=== PATIENT | female | born 1990 | race Caucasian/White ===

== ENCOUNTER 2018-04-27 10:10 | Day surgery (SDC) | payer OTHER ==
[~2018-04-27 10:10] MED LIST: ACYC200C PO; HYDROmorphone 2 MG/ML VIAL IV PRN; IV RINGERS,LACTATED 1000ML 1,000 ML IV SCH; LEXAPRO5 MG PO; LIDOCAINE 1% PF 2 ML VIAL. ID PRN; ONDANSETRON PF 4 MG/2 ML VIAL. IV PRN; PROCHLORPERAZINE 10 MG/2 ML VIAL. IV PRN; fentaNYL PF VIAL 100 MCG/2 ML VIAL IV PRN
[2018-04-27 10:53] LABS: U PREG PATIENT NEGATIVE (NEG)
[2018-04-27] MEDS ORDERED: BUPIVAC MPF-EPI 0.5%-1:200000 30 ML VIAL. ONE (11:56)
[2018-04-27] MEDS ORDERED: fentaNYL PF VIAL 100 MCG/2 ML VIAL ONE ×3 (12:01→13:14)
[2018-04-27] MEDS ORDERED: MIDAZOLAM HCL/PF 2 MG/2 ML VIAL. ONE (12:01)
[2018-04-27] MEDS ORDERED: ROCURONIUM 50 MG/5 ML VIAL. ONE (12:01)
[2018-04-27] MEDS ORDERED: GLYCOPYRROLATE 1 MG/5 ML VIAL. ONE (12:38)
[2018-04-27] MEDS ORDERED: ONDANSETRON PF 4 MG/2 ML VIAL. ONE (12:38)
[2018-04-27] MEDS ORDERED: LIDOCAINE 2% PF Vial for OR 5 ML VIAL. ONE (12:38)
[2018-04-27] MEDS ORDERED: PROPOFOL 20 ML IV ONE (12:38)
[2018-04-27] MEDS ORDERED: DEXAMETHASONE SOD PHOS 20 MG/5 ML VIAL. ONE (12:38)
[2018-04-27] MEDS ORDERED: SEVOFLURANE 31 TO 60 MINUTES. IH ONE (12:38)
[2018-04-27] MEDS ORDERED: NEOSTIGMINE 10 MG/10 ML VIAL. ONE (12:39)
[2018-04-27] MEDS ORDERED: PROCHLORPERAZINE 10 MG/2 ML VIAL. ONE (12:47)
--- NOTE | 2018-04-27 12:52 | PDOC ---
BRIEF OPERATIVE NOTE Date: Apr 27, 2018 Pre-Op Diagnosis Sterilization Post-Op Diagnosis SAme Procedure Performed [facility] BTL Surgeon Dr. Priest Anesthesia Type: General Blood Loss less than 5 ml Specimens Obtained none Findings nml size uterus, nml fallopian tubes and ovaries jazlyn. Complications none PATRICK PRIEST Jr, MD Apr 27, 2018 12:52
--- NOTE | 2018-04-27 12:53 | DISCH ---
DISCHARGE INSTRUCTIONS Condition on Discharge Condition on Discharge: Stable Activity After Discharge Activity Instructions for Disc: Activity as tolerated Lifting Instructions after Dis: No heavy lifting Driving Instructions after Dis: Do not drive today Diet after Discharge Diet after Discharge: Regular Contacting the DRChris after DC Call your doctor for: Concerns you may have Follow-Up Follow up with: Dr. Priets in 1 week. PATRICK PRIEST Jr, MD Apr 27, 2018 12:53
--- NOTE | 2018-04-27 13:06 | OP ---
DATE OF SURGERY: 04/27/2018 PREOPERATIVE DIAGNOSIS: Sterilization. POSTOPERATIVE DIAGNOSIS: Sterilization. PROCEDURE: Laparoscopic BTL. SURGEON: Blake Priest MD ANESTHESIA: GETA. ESTIMATED BLOOD LOSS: Less than 5 mL. COMPLICATIONS: None. FINDINGS: Normal size uterus, normal fallopian tubes and ovaries bilaterally. SUMMARY: A 28-year-old female desiring permanent sterilization, was counseled on risks, benefits and expectations as well as the failure rate of bilateral tubal ligation and voiced clear understanding to proceed. DESCRIPTION OF PROCEDURE: The patient was taken to surgery suite and placed in dorsal lithotomy position. She was prepped with ChloraPrep and draped in sterile fashion. She also prepped with Betadine solution for vaginal prep. After adequate anesthesia, a bivalve speculum was placed vaginally. Anterior lip of the cervix grasped with single tooth tenaculum. Isola uterine manipulator was then placed. The bivalve speculum was removed. Attention was now placed on abdomen. Small transverse skin incision was made just below the umbilicus with the scalpel. The Veress needle was then placed through the infraumbilical incision site. The abdomen was allowed to insufflate up to 1-1/2 liters CO2 gas. The Veress needle was then removed, 5 mm trocar was placed. Scope was positioned. Uterus, fallopian tubes, and ovaries appeared normal bilaterally. Left lower quadrant incision was made with a scalpel in which 8-mm port was placed. The Filshie clip applicator was then passed through this port and a Filshie clip was applied to the left fallopian tube in the isthmus region with total occlusion of the fallopian tube. Same process took place with the right adnexa. The patient tolerated procedure well. Both trocars were removed under direct visualization. The abdomen was allowed to deflate as much as possible along with mechanical manipulation. The two skin incisions were reapproximated using 4-0 Vicryl suture in subcuticular manner. A 0.5% Marcaine with epinephrine was injected at each incision site. Single tooth tenaculum and uterine Isola manipulator was then removed. The patient tolerated the procedure well and was taken to recovery room in stable condition. Sponge and needle count correct x 3. BLAKE PRIEST MD DR: [email or web address]/gaby JOB#: [id number] / [id number]
[2018-04-27] MEDS: fentaNYL PF VIAL 100 MCG/2 ML VIAL IV PRN ×4 (13:13→13:34)
[2018-04-27] MEDS ORDERED: HYDROcodone/APAP 5/325MG 1 TAB TABLET PO ONE ×2 (13:30)
[2018-04-27] MEDS ORDERED: MORPHINE SULFATE 2 MG/ML VIAL. ONE (13:52)
[2018-04-27] MEDS: MORPHINE SULFATE 2 MG/ML VIAL. IV PRN ×2 (13:55→14:16)
[2018-04-27] MEDS ORDERED: KETOROLAC 30 MG/ML VIAL. ONE (14:25)
[2018-04-27] MEDS ORDERED: KETOROLAC 30 MG/ML VIAL. IV ONE (14:30)
[2018-04-27 15:12] VITALS: BP 128/61
== END 2018-04-27 15:23 | disposition home or self-care (01) ==
LOC: SURG 10:10
PROVIDERS: ATTEND Obstetrics & Gynecology
DX: Z30.2 Encounter for sterilization (principal); Z88.2 Allergy status to sulfonamides; Z79.899 Other long term (current) drug therapy; Z83.3 Family history of diabetes mellitus; Z83.49 Family history of other endocrine, nutritional and metabolic diseases
CPT/HCPCS: 58671; 81025; A4264; A7015; J0690; J1100; J1885; J2001; J2250; J2270; J2405; J2704; J2710; J3010; J3490; J0780